=== PATIENT | male | born 1985 | race Caucasian/White ===

== ENCOUNTER 2022-11-18 17:36 | Emergency (ER) | payer SELFPAY ==
[~2022-11-18] VITALS: Ht 188 cm; Wt 74.0 kg
[2022-11-18] MEDS ORDERED: IBUPROFEN 600MG TABLET PO ONE (18:30)
[2022-11-18 19:06] VITALS: BP 110/50
== END 2022-11-18 19:08 | disposition home or self-care (01) ==
LOC: ER 17:36
DX: E86.0 Dehydration (principal); R51.9 Headache, unspecified
CPT/HCPCS: 99283